=== PATIENT | female | born 1990 | race Caucasian/White ===

== ENCOUNTER 2025-07-27 20:08 | Outpatient (REF) | payer MEDICARE, MEDICAID, SELFPAY | END 2025-07-27 20:09 | disposition home or self-care (01) | LOC: LAB 20:08 | PROVIDERS: Visit Provider Physician Assistant | DX: Z01.419 Encounter for gynecological examination (general) (routine) without abnormal findings (principal) | CPT/HCPCS: 87624; 88175 ==